=== PATIENT | female | born 1985 | race Caucasian/White ===

== ENCOUNTER 2016-05-14 09:42 | Emergency (ER) | payer OTHER ==
[2016-05-14 10:07] VITALS: BP 122/66; PULSE 56; RESP 16; TEMP 99.2; O2SAT 99
[2016-05-14 10:58] LABS: % IMMATURE GRANULYOCYTES 0.3 % (0.0-1.1); ABSOLUTE IMMATURE GRANULOCYTES 0.02 10^3/uL (0.00-0.10); ADD DIFF? NO; ADD MORPH? NO; ADD SCAN? NO; ATYPICAL LYMPHOCYTE FLAG 10 (0-99); FRAGMENT RBC FLAG 0 (0-99); HEMATOCRIT 44.4 % (38.0-47.0); HEMOGLOBIN 14.9 g/dL (12.6-16.3); LEFT SHIFT FLG 0 (0-99); LIPEMIA HEMOLYSIS FLAG 80 (0-99); MEAN CELL HEMOGLOBIN 30.2 pg (27.9-34.1); MEAN CELL HEMOGLOBIN CONCENTR. 33.6 g/dL (32.4-36.7); MEAN CELL VOLUME 89.9 fL (81.5-99.8); MEAN PLATELET VOLUME 10.2 fL (8.7-11.7); PLATELET CLUMPS FLAG 20 (0-99); PLATELET COUNT 217 10^3/uL (150-400); RED BLOOD CELL COUNT 4.94 10^6/uL (4.18-5.33); RED CELL DISTRIBUTION WIDTH 12.5 % (11.5-15.2)
[2016-05-14 11:03] LABS: COLOR YELLOW; LEUKOCYTE ESTERASE,URINE NEGATIVE (NEGATIVE); NITRITE,URINE NEGATIVE (NEGATIVE)
[2016-05-14 11:14] LABS: ALANINE AMINOTRANSFERASE 31 IU/L (9-52); ALBUMIN 3.5 g/dL (3.5-5.0); ALKALINE PHOSPHATASE 42 IU/L (38-126); ANION GAP 10 mEq/L (8-16); ASPARTATE AMINOTRANSFERASE 19 IU/L (14-46); BILIRUBIN,TOTAL 0.6 mg/dL (0.1-1.4); CARBON DIOXIDE 28 mEq/l (22-31); CHLORIDE 105 mEq/L (97-110); CREATININE 0.9 mg/dL (0.6-1.0); GLOMERULAR FILTRATION RATE > 60; GLUCOSE 73 mg/dL (70-100); POTASSIUM 3.8 mEq/L (3.5-5.2); SODIUM 143 mEq/L (134-144); TOTAL PROTEIN 6.7 g/dL (6.3-8.2)
--- NOTE | 2016-05-14 11:42 | UCPHY ---
H & P Time Seen by Provider: 05/14/16 10:13 Patient Type: New HPI/ROS: This patient complains of abdominal burning discomfort in her lower belly with associated feeling of bloating. Her symptoms started over the past week gradual in onset and she feels associated fatigue. She explains that she slept all day yesterday as well as the day before. This is unusual for her. She notes that the abdominal pain has no clear exacerbating or alleviating factors. She does have decreased appetite but no other associated GI symptoms except for small bowel movements compared to baseline. ROS: No fevers chills or other constitutional symptoms. HEENT: No recent URI symptoms or other complaints. Pulmonary: No coughing. No shortness of breath. Cardiovascular: No chest pain or lightheadedness. GI: No other symptoms besides what is mentioned in HPI. : No urinary symptoms. Her last menstrual period was normal timing. 10 point ROS is otherwise negative. Past Medical/Surgical History: Past surgical history: Inguinal hernia surgical repair 7 years ago Smoking Status: Never smoked Physical Exam: General Appearance: Pleasant 31-year-old female Alert, no distress. Eyes: Pupils equal and round no pallor or injection. ENT, Mouth: Mucous membranes moist. Respiratory: There are no retractions, lungs are clear to auscultation. Cardiovascular: Regular rate and rhythm. Gastrointestinal: Normoactive, soft, minimal suprapubic tenderness with no guarding or rebound. Back: No CVA tenderness Neurological: Alert with no focal deficits. Skin: Warm and dry, no rashes. Musculoskeletal: Neck is supple nontender. Extremities are symmetrical, full range of motion. Psychiatric: Mood and affect are normal DIFFERENTIAL DIAGNOSIS: After history and physical exam differential diagnosis was considered for cystitis, , thyroid disease, anemia, metabolic disarray Constitutional: Initial Vital Signs Temperature (C) 37.3 C 05/14/16 10:00 Heart Rate 56 L 05/14/16 10:00 Respiratory Rate 16 05/14/16 10:00 Blood Pressure 122/66 H 05/14/16 10:00 O2 Sat (%) 99 05/14/16 10:00 O2 Delivery Mode Room Air Allergies/Adverse Reactions: No Known Allergies Allergy (Unverified 05/14/16 10:08) Home Medications: Medication Instructions Recorded NK [No Known Home Meds] 03/20/17 MDM/Departure - MDM Diagnostics: Urinalysis is normal. test is negative. CBC is normal, comp metabolic panel normal, TSH normal ED Course/Re-evaluation: The cause of this patient's symptoms is unclear. She may have mild constipation. I counseled regarding this. The cause of the fatigue is unclear. No evidence today of anemia, thyroid disease, or other concerning findings. - Depart Disposition: Home, Routine, Self-Care Condition: Good Instructions: Fatigue (ED) Additional Instructions: Diagnosis: Fatigue Plan: Drink plenty fluids Continue your healthy diet Return for any significant worsening despite treatment plan. Referrals: NONE *PRIMARY CARE P,. [Primary Care Provider] - As per Instructions Jessica Lopez DO [Doctor of Osteopathy] - As per Instructions - PQRS PQRS Measurement: NA
== END 2016-05-14 11:55 | disposition home or self-care (01) ==
LOC: CED 09:42
DX: R53.83 Other fatigue (principal); R10.9 Unspecified abdominal pain; R14.0 Abdominal distension (gaseous)
CPT/HCPCS: 80053-PO; 81003-PO; 84443-PO; 84703-PO; 85025-PO; 99203-PO; G0463-PO